=== PATIENT | female | born 1985 ===

== ENCOUNTER 2017-12-15 19:03 | Inpatient (IN) | payer OTHER ==
[~2017-12-15] VITALS: Ht 157.5 cm; Wt 71.7 kg
[2017-12-15] MEDS ORDERED: PRENATAL TABLE1 EAC1 PO (19:28)
== END 2017-12-17 11:07 | disposition home or self-care (01) | DRG 782 ==
LOC: OB/GYN 19:03 → LDR 19:03 → OB/GYN 12-16 09:01
PROC: 4A1HXCZ Monitoring of Products of Conception, Cardiac Rate, External Approach (ICD-10-PCS; principal; 2017-12-15)
DX: O13.3 Gestational [pregnancy-induced] hypertension without significant proteinuria, third trimester (principal)

== ENCOUNTER 2018-01-17 19:14 | Inpatient (IN) | payer OTHER ==
[~2018-01-17] VITALS: Ht 157.5 cm; Wt 71.7 kg
[~2018-01-17 19:14] MED LIST: PRENATAL TABLE1 EAC1 PO
[2018-01-20] MEDS ORDERED: DOCUSATE SODIU100 MG PO (08:15)
== END 2018-01-20 16:18 | DRG 775 ==
LOC: LDR 19:14 → OB/GYN 01-18 02:28
PROC: 10E0XZZ Delivery of Products of Conception, External Approach (ICD-10-PCS; principal; 2018-01-18)
PROC: 0DQR0ZZ Repair Anal Sphincter, Open Approach (ICD-10-PCS; 2018-01-18)
PROC: 3E0P7VZ Introduction of Hormone into Female Reproductive, Via Natural or Artificial Opening (ICD-10-PCS; 2018-01-18)
PROC: 3E033VJ Introduction of Other Hormone into Peripheral Vein, Percutaneous Approach (ICD-10-PCS; 2018-01-18)
PROC: 4A1HXCZ Monitoring of Products of Conception, Cardiac Rate, External Approach (ICD-10-PCS; 2018-01-18)
DX: O48.0 Post-term pregnancy (principal); O70.21 Third degree perineal laceration during delivery, IIIa; O99.824 Streptococcus B carrier state complicating childbirth; Z3A.40 40 weeks gestation of pregnancy; Z37.0 Single live birth

== ENCOUNTER 2018-10-07 05:16 | Emergency (ER) | payer OTHER ==
[~2018-10-07] VITALS: Ht 154.9 cm; Wt 56.7 kg
[~2018-10-07 05:16] MED LIST changes: +DOCUSATE SODIU100 MG PO
== END 2018-10-07 11:22 | disposition home or self-care (01) ==
LOC: ER 05:16 → EMR PED 05:18 → ER 11:22
DX: K52.89 Other specified noninfective gastroenteritis and colitis (principal)